=== PATIENT | male | born 1995 ===

== ENCOUNTER 2020-10-29 15:26 | Outpatient (CLI) | payer OTHER ==
--- NOTE | 2020-10-29 16:05 | SLEEP CARE CONSULTATION ---
Information from patient questionnaire entered by Harriett Covington. I have reviewed and concur with the information entered by Harriett Covington. This document represents the service I personally performed and the decisions made by me, Manasa Khanna ARNP. History of Present Illness Service Date and Time: 10/29/2020 1526 Reason for Visit: New patient Chief Complaint: reports: Unrefreshed sleep, Snoring, Excessive daytime sleepiness, Observed pauses in breathing, Fatigue Date of Onset: Middle school 12-13 years Usual bedtime: 9 PM Time it takes to fall asleep: 15-20 Snores at night: Yes Observed to quit breathing while asleep: Yes Sleeps alone due to snoring: Yes Number of times waking at night: 2-3 Reasons for waking at night: reports: Snoring, Gasping for air. denies: Choking Toss, Turn, or Twitch while sleeping: Yes Recalls having dreams: No (mostly not) Usually gets out of bed at: 5:30 AM; weekends 0900 Feels refreshed in the morning: No Morning headache: No Sleepy or fatigued during the day: Yes Ever fallen asleep while driving: Yes (no drowsy driving) Takes day naps: No Dreams during day naps: No Prior sleep studies: Yes Year and Where: 2015 [place], [place] Additional HPI information: I had the pleasure of seeing JARRETT KRISHNAMURTHY today regarding the possibility of him having a sleep disorder. His current complaints are excessive daytime sleepiness, fatigue, observed pauses in breathing, snoring and unrefreshed sleep. He states he has been dealing with these symptoms since he was a teenager. Both of his parents are loud snorers and his father wakes up at night because he cannot breathe. He states he is a loud snorer and keeps his partner up at night. She has told him that he will wake gasping/coughing in his sleep but he does not remember this usually. He talks in sleep sometimes. He used to sleep walk when he was a teenager. He had a sleep study in 2017 and was told he did not have sleep apnea. He continues to have symptoms. He had a sinus surgery to fix a deviated septum because he could not breathe well from his nose. While his snoring improved some after surgery, it has resumed to be as loud as ever. He has history of anxiety and takes Hydroxyzine. 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 Patient is Single and lives in [place]. Have you smoked in the past 12 months: No Cigarettes per day (20/pack): 0 Years of smokin Quit date: 2016 Smoking Pack Years: 0 Alcohol use: No Caffeine use: Yes Caffeine amount and frequency: 1 cup coffee once a day Family History Family history of sleep disordered breathing: Yes Family Hx Sleep Apnea: Mother: Snoring, Sleep apnea - Untreated, Father: Snoring, Sleep apnea - Untreated, Sibling: Snoring, Sleep apnea - Untreated, Grandparent: Snoring, Sleep apnea - Untreated Allergies and Home Medications Drug allergies reviewed: Yes (NKDA) Home medication list reviewed: Yes Allergy and home medication list: Hydroxyzine Review of Systems Weight gain over past 5 years: 30 Cardiovascular: denies: high blood pressure Neurological: denies: headaches Psychiatric: reports: anxiety Ear/Nose/Throat: reports: dry mouth/throat, injury to nose (septoplasty on nose 4 months ago), wisdom teeth removed. denies: tonsillectomy Endocrine: denies: thyroid disease Immunologic: denies: allergies to food or environment Physical Exam Blood Pressure: 116/77 Cuff size: wrist Heart Rate: 88 O2 Saturation: 97 Height: 6 ft Weight: 230 lb Body Mass Index: 31.1 BMI Classification: Obese Neck circumference: 15.75 (inches) Mouth and throat: narrow oropharynx Soft palate: long Hard palate: arched Uvula: normal Uvula visualization: 50% Mallampati Class II Tongue: normal in size Tonsils: 1+ Heart: regular rate and rhythm Lungs: clear bilaterally Impression and Plan 1. Suspected Obstructive Sleep Apnea-Hypopnea Syndrome, as suggested by a history of loud and irregular snoring, observed cessation of breath while asleep, gasping or choking in sleep, unrefreshed sleep, cognitive impairment, and excessive daytime sleepiness. Narrow oropharynx and obesity are common predisposing factors for obstructive sleep apnea-hypopnea syndrome. I recommend proceeding to polysomnography to confirm the diagnosis and to assess severity. If the patient has significant sleep disordered breathing, a manual CPAP titr ation study will also be performed to find the optimal treatment pressure. I informed the patient of what the sleep studies involve and after some discussion, obtained agreement to proceed. The pathophysiology of obstructive sleep apnea-hypopnea syndrome was discussed with the patient and health risks of cardiovascular and cerebrovascular disease if not treated. AAS brochure for obstructive sleep apnea-hypopnea syndrome given and reviewed. Risks of drowsy driving discussed in detail and patient advised to avoid long distance driving and to caul puller at the first sign of drowsiness. Patient agreed to plan. * Schedule polysomnography +- manual CPAP titration study and return in 1-2 weeks after the study to discuss result and initiate therapy. * Avoid long distance driving or driving when feeling sleepy. * Avoid alcohol, sedative and muscle relaxant around bedtime. * Attempt to lose weight. * Review instructions provided by trained office staff on how to prepare for the sleep study. * Return for follow-up after sleep study completed. Counseling Topics: Weight loss health impact Visit Type: In Office Time Spent with Patient (minutes): 30 Provider Statement: I spent 100% of the Face to Face Visit with the patient with greater than 50% spent counseling the patient and coordination of care.
[2020-10-29 16:06] VITALS: BP 116/77
== END 2020-10-29 15:27 | disposition home or self-care (01) ==
LOC: SC 15:26
PROVIDERS: ATTEND Nurse Practitioner Family
DX: G47.10 Hypersomnia, unspecified (principal); R06.83 Snoring; R06.81 Apnea, not elsewhere classified; R41.89 Other symptoms and signs involving cognitive functions and awareness; G47.8 Other sleep disorders; E66.9 Obesity, unspecified; Z68.31 Body mass index [BMI] 31.0-31.9, adult
CPT/HCPCS: 99203; 99212

== ENCOUNTER 2020-11-03 14:14 | Outpatient (CLI) | payer OTHER | END 2020-11-03 14:15 | disposition home or self-care (01) | LOC: SC 14:14 | PROVIDERS: ATTEND Nurse Practitioner Family | DX: G47.33 Obstructive sleep apnea (adult) (pediatric) (principal); R00.0 Tachycardia, unspecified; R09.02 Hypoxemia | CPT/HCPCS: 95806 ==

== ENCOUNTER 2020-11-14 12:59 | Outpatient (CLI) | payer OTHER ==
--- NOTE | 2020-11-14 13:24 | SLEEP CARE CONSULTATION ---
Information from patient questionnaire entered by Harriett Covington. I have reviewed and concur with the information entered by Harriett Covington. This document represents the service I personally performed and the decisions made by , Manasa Khanna ARNP. History of Present Illness Service Date and Time: 11/14/2020 1259 Initial [place] Sleepiness Scale score: 1 (in 2020) Current [place] Sleepiness Scale score: 5 Additional HPI information: JARRETT KRISHNAMURTHY returns for follow up and results of the recently performed home sleep study. I explained the pathophysiology behind obstructive sleep apnea. We then spent quite a bit of time discussing different treatment options. For mild obstructive sleep apnea, surgery and oral appliance are alternatives to nasal CPAP therapy but in moderate or severe cases, nasal CPAP is the most effective and reliable treatment. Because apnea is primarily in supine position, then positional management therapy could be effective. Methods discussed such as positioning with pillows, using a T-shirt with tennis balls in the back, and shown commercial products that have a pillow format on back to prevent supine sleep. I reviewed the impact of weight changes on sleep apnea and strongly recommended losing weight. After some discussion, the patient opted to go with the nasal CPAP therapy. Nasal autoCPAP set at 4-15 cmH20 will be ordered with rationale explained. A manual titration study will be ordered if unable to find optimal pressure with office adjustments. I explained how CPAP machine works with sample devices Respironics Dreamstation and ResSkully Helmets [id number] and what to expect when using the machine. Using CPAP every night in order to get used to it was emphasized. Patient advised to put CPAP mask on before getting into bed so as not to fall asleep without CPAP. To assist acclimation to CPAP use, it could also be used for a short time during day while reading or watching TV. The patient was instructed to call the CPAP supplier to discuss any mechanical problem that may occur. If the mask given is uncomfortable or is difficult to keep on through the night even with adjustment, contact the CPAP supplier as many will replace with another mask style if notified before 30 days. If snoring or perceives is not getting enough air or too much air from the machine, notify this office. [facility] patient education PAP tips reviewed and given to patient. Patient does not drink alcohol. Patient was cautioned about risks of drowsy driving until sleepiness symptoms resolve. Sleep Study - Results Type of Sleep Study: Home sleep study Prior sleep studies: Yes Year and Where: 2015 [place], [place] Polysomnography/Home Sleep Study results: Physician Impression: The quality of the study is good. The length of the study is adequate (> 240 minutes). Please also see the tabulated and graphic data. 1. Obstructive Sleep Apnea-Hypopnea (ICD-10 G47.33), mild, with an AHI of 8.2/hr and moises SaO2 of 80%. During the study, the patient had 35 apneas (35 obstructive, 0 central, 0 mixed) and 25 hypopneas. The longest episode lasted 90.5 seconds. The respiratory events occurred almost exclusively during supine sleep (supine AHI was 11.5 and non-supine, 3.57). 2. Hypoxemia (ICD-10 R09.02), mild, with the lowest oxygen saturation of 80 % and 8.2 minutes with SaO2 under 90%. Baseline oxygen saturation was normal (Average oxygen saturation was 95%). 3. Tachycardia, with maximum recoded heart rate of 251 beats per minute, but mo st likely an artifact. Allergies and Home Medications Home medication list reviewed: Yes (sertraline, hydroxyzine) Review of Systems Review of systems same as previous: Yes (no changes) Physical Exam Heart Rate: 66 O2 Saturation: 90 Height: 6 ft Weight: 243 lb Body Mass Index: 32.9 BMI Classification: Obese Impression and Plan 1. Obstructive Sleep Apnea-Hypopnea Syndrome, mild, with lowest oxygen saturation of 80%. Obviously this is the cause of the patients symptoms of unrefreshed sleep, and excessive daytime sleepiness. Positive pressure therapy could benefit anxiety. Patient states he has tried to sleep only on his side in the past and always finds himself on his back. As mentioned above, the patient will be started on nasal autoCPAP therapy with pressure set at 4-15 cmH2O. A manual titration study will be completed if unable to find optimal treatment pressure with office adjustments. Compliance guidelines also reviewed. A copy of compliance guidelines will be given for reference at check out. Because the apnea is more severe supine, I instructed to avoid sleeping supine using pillow positioning until able to start CPAP use. * Nasal auto CPAP therapy, pressure at 4-15 cm H2O. * Attempt to lose weight. * Avoid alcohol consumption near bedtime. * Avoid supine sleep until using CPAP. * The patient is again cautioned about driving until sleepiness completely resolves. * Return one month after CPAP obtained. I will assess response to therapy and compliance at that time. Counseling Topics: Weight loss health impact Visit Type: In Office Time Spent with Patient (minutes): 20 Provider Statement: I spent 100% of the Face to Face Visit with the patient with greater than 50% spent counseling the patient and coordination of care.
== END 2020-11-14 13:00 | disposition home or self-care (01) ==
LOC: SC 12:59
PROVIDERS: ATTEND Nurse Practitioner Family
DX: G47.33 Obstructive sleep apnea (adult) (pediatric) (principal); R00.0 Tachycardia, unspecified; R09.02 Hypoxemia
CPT/HCPCS: 99212; 99213

== ENCOUNTER 2022-01-28 13:43 | Outpatient (CLI) | payer OTHER | END 2022-01-28 23:59 | disposition EMS.NT | LOC: EMS 13:43 | DX: R11.0 Nausea (principal); R50.9 Fever, unspecified; J02.9 Acute pharyngitis, unspecified; R52 Pain, unspecified ==

== ENCOUNTER 2022-03-27 12:45 | Outpatient (CLI) | payer OTHER ==
--- NOTE | 2022-03-29 08:26 | MRI Report ---
PROCEDURE: KNEE WO - RT INDICATIONS: PAIN IN RIGHT KNEE TECHNIQUE: Noncontrast sagittal PD fast spin echo and T2 fast spin echo with fat saturation, sagittal 3-D gradie nt sequence with fat saturation; coronal T1 spin echo and PD fast spin echo with fat saturation, and axial PD fast spin echo with fat saturation through the knee. COMPARISON: None. FINDINGS: Image quality: Good Menisci Medial: Intact. Meniscocapusular junction maintained. Subtle peripheral surface fraying at the body. Lateral: Intact. Meniscopopliteal fascicles maintained. Cruciate ligaments: Intact Medial structures MCL: Intact Pes anserine tendons: Intact Semimembranosus: Intact Lateral structures LCL: Intact Biceps femoris: Intact IT band: Intact Popliteus tendon: Intact Anterior structures Extensor mechanism: Intact Fat pads: No pathologic edema Medial retinaculum: Intact. Trochlea: Unremarkable morphology. Bone and joint Bones: No fracture, dislocation, or suspicious edema Cartilage: No significant defect Joint space: Physiologic fluid. No measureable loose body. Melo's cyst: None Soft tissues: No significant vascular or other soft tissue pathology. IMPRESSION: No significant internal derangement of the knee. There is only subtle peripheral fraying of the media l meniscal body, without significant tear. Reviewed by: Efrain Gonzalez MD on 03/29/2022 8:24 AM PST Approved by: Efrain Gonzalez MD on 03/29/2022 8:24 AM PST Station ID: [id number]
== END 2022-03-27 12:46 | disposition home or self-care (01) ==
LOC: DI 12:45
PROVIDERS: ATTEND Physician Assistant
DX: M25.561 Pain in right knee (principal)

== ENCOUNTER 2023-08-23 14:08 | Emergency (ER) | payer OTHER ==
[2023-08-23 14:50] LABS: BASOPHILS # (AUTO) 0.1 10^3/uL (0.0-0.1); BASOPHILS % (AUTO) 0.6 %; EOSINOPHILS # (AUTO) 0.5 10^3/uL (0.0-0.7); EOSINOPHILS % (AUTO) 5.8 %; HCT - HEMATOCRIT 42.8 % (42.0-52.0); HGB - HEMOGLOBIN 14.8 g/dL (14.0-18.0); LYMPHOCYTES # (AUTO) 2.9 10^3/uL (1.5-3.5); LYMPHOCYTES % (AUTO) 33.3 %; MEAN CORPUSCULAR HEMOGLOBIN 28.6 pg (27.0-31.0); MEAN CORPUSCULAR HGB CONC 34.6 g/dL (32.0-36.0); MEAN CORPUSCULAR VOLUME 82.6 fL (80.0-94.0); MONOCYTES # (AUTO) 0.7 10^3/uL (0.0-1.0); MONOCYTES % (AUTO) 7.9 %; NEUTROPHILS # (AUTO) 4.6 10^3/uL (1.5-6.6); NEUTROPHILS % (AUTO) 51.9 %; PLT - PLATELET COUNT 266 10^3/uL (130-450); RED BLOOD COUNT 5.18 10^6/uL (4.70-6.10); RED CELL DISTRIBUTION WIDTH 11.9 % (12.0-15.0); WHITE BLOOD COUNT 8.8 x10^3/uL (4.8-10.8)
--- NOTE | 2023-08-23 15:00 | XRAY Report ---
PROCEDURE: Chest 1V INDICATIONS: Chest pain TECHNIQUE: One view of the chest was acquired. COMPARISON: None. FINDINGS: Surgical changes and devices: None. Lungs and pleura: No pleural effusions or pneumothorax. Lungs are clear. Mediastinum: Mediastinal contours appear normal. Heart size is normal. Bones and chest wall: No suspicious bony lesions. Overlying soft tissues appear unremarkable. IMPRESSION: No acute cardiopulmonary process. Reviewed by: Donald Mays MD on 08/23/2023 2:59 PM PDT Approved by: Donald Mays MD on 08/23/2023 2:59 PM PDT Station ID: [id number]
[2023-08-23 15:04] LABS: ALBUMIN 4.5 g/dL (3.2-5.5); ALBUMIN/GLOBULIN RATIO 1.5 (1.0-2.2); ALKALINE PHOSPHATASE 86 IU/L (42-121); ALT ALANINE AMINOTRANSFERASE 32 IU/L (10-60); AST ASPARTATE AMINOTRANSFERASE 18 IU/L (10-42); BILIRUBIN,TOTAL 0.7 mg/dL (0.2-1.0); BUN - BLOOD UREA NITROGEN 19 mg/dL (6-20); CALCIUM 9.6 mg/dL (8.5-10.3); CARBON DIOXIDE - CO2 27 mmol/L (21-32); CHLORIDE 103 mmol/L (101-111); GFR - MDRD 89 (>89); GLUCOSE 90 mg/dL (74-104); LIPASE 11 U/L (11-82); POTASSIUM 3.9 mmol/L (3.5-4.5); SODIUM 135 mmol/L (135-145); TOTAL PROTEIN 7.5 g/dL (6.4-8.9)
[2023-08-23 15:10] LABS: TROPONIN I HIGH SENSITIVITY < 2.3 ng/L (2.3-19.7)
--- NOTE | 2023-08-23 15:14 | ED Physician Documentation ---
PD HPI CHEST PAIN - Stated complaint Stated Complaint: CHEST PX - Chief complaint Chief Complaint: Cardiac - History obtained from History obtained from: Patient - History of Present Illness Timing - onset: How many days ago (severl days of brief sharp pains left chest not associated with eating, position, injury. Hurts with breathing at times but not consistently.) Timing - onset during: Rest Timing - duration: Seconds Timing - details: Still present, Intermittant Quality: Sharp, Pain. No: Pressure, Tightness Location: Left chest, Left shoulder/arm Radiation: Left upper extremity. No: Back Improved by: No: Rest Worsened by: No: Eating Similar symptoms before: Has not had sx before Review of Systems Constitutional: reports: Fatigue (had URI about a month ago and has improved though still some easy fatigue.). denies: Fever, Chills, Myalgias Nose: denies: Rhinorrhea / runny nose, Congestion Throat: denies: Sore throat Cardiac: denies: Palpitations, Pedal edema, Calf pain Respiratory: denies: Dyspnea, Cough PD PAST MEDICAL HISTORY - Past Medical History Past Medical History: Yes Cardiovascular: None Respiratory: Sleep apnea, CPAP use Neuro: None Endocrine/Autoimmune: None GI: None : None HEENT: None Psych: Anxiety Musculoskeletal: None Derm: None - Past Surgical History Past Surgical History: No HEENT: Other - Present Medications Home Medications: Ambulatory Orders Medication Instructions Recorded Confirmed Propranolol HCl 20 mg PO DAILY PRN 08/23/23 08/23/23 buPROPion HCL [Bupropion Xl] 150 mg PO DAILY 08/23/23 08/23/23 buPROPion HCL [Bupropion Xl] 300 mg PO DAILY 08/23/23 08/23/23 - Allergies Allergies/Adverse Reactions: Allergies Allergy/AdvReac Type Severity Reaction Status Date / Time No Known Drug Allergies Allergy Verified 08/23/23 14:16 - Social History Does the pt smoke?: No Smoking Status: Former smoker Does the pt drink ETOH?: No Does the pt have substance abuse?: No - Immunizations Immunizations are current?: Yes PD ED PE NORMAL - Vitals Vital signs reviewed: Yes - General General: Alert and oriented X 3, No acute distress, Well developed/nourished - HEENT HEENT: Atraumatic, Dentition benign - Neck Neck: Supple, no meningeal sign, No adenopathy - Cardiac Cardiac: RRR, No murmur, Other (no chestwall tenderness. ) - Respiratory Respiratory: No respiratory distress - Abdomen Abdomen: Soft, Non tender - Derm Derm: Normal color, Warm and dry, No rash - Extremities Extremities: No edema, No calf tenderness / cord - Neuro Neuro: Alert and oriented X 3, No motor deficit, No sensory deficit Results - Vitals Vitals: Oxygen O2 Source Room air - EKG (time done) 14:25 EKG releavant findings:: EKG personally interpreted by author of this note. Relevant findings are: Rate: Rate (enter#) (78) Rhythm: NSR [place]: Normal Intervals: Normal DE QRS: Normal Ischemia: Normal ST segments. No: ST elevation c/w ischemia, ST depression Compare to prior EKG: Old EKG unavailable - Labs Labs: Laboratory Tests 08/23/23 08/23/23 14:47 14:47 WBC 8.8 RBC 5.18 Hgb 14.8 Hct 42.8 MCV 82.6 MCH 28.6 MCHC 34.6 RDW 11.9 L Plt Count 266 MPV 9.0 Neut # (Auto) 4.6 Lymph # (Auto) 2.9 [place] # (Auto) 0.7 Eos # (Auto) 0.5 Baso # (Auto) 0.1 Absolute Nucleated RBC 0.00 Nucleated RBC % 0.0 Sodium 135 Potassium 3.9 Chloride 103 Carbon Dioxide 27 Anion Gap 5.0 L BUN 19 Creatinine 1.0 Estimated GFR (MDRD) 89 Glucose 90 Calcium 9.6 Total Bilirubin 0.7 AST 18 ALT 32 Alkaline Phosphatase 86 Troponin I High Sens < 2.3 L Total Protein 7.5 Albumin 4.5 Globulin 3.0 Albumin/Globulin Ratio 1.5 Lipase 11 - Rads (name of study) chest xray Relevant Findings:: Prelim report reviewed, EMP independent interpretation of test (no acute process. No CHF. ) PD Medical Decision Making - ED course Complexity details: considered differential (pt had labs and ECG done while in waiting room. No acute process. CXR also done. So pt not on monitor very long. He states had the twang of pain left chest severa times here, and placed on monitor. He states some times of symptoms while on monitor but did not note time. ), d/w patient Reviewed Lab Results: on review of monitored rhythm while here, there are occasional PACs, and a PVC. I don't know if these timed exactly with his symptoms while here. In any event, are benign and there are not worse finding to suggest alternate Dx. Departure - Departure Disposition: 01 Home, Self Care Clinical Impression: Intermittent left-sided chest pain, PAC (premature atrial contraction) Condition: Stable Record reviewed to determine appropriate education?: Yes Instructions: ED Chest Pain Atypical Unkn Cause, ED Palpitations Follow-Up: RONAL ANTONY, [Primary Care Provider] - Comments: Your chest x-ray and EKG and blood tests do not show any acute abnormalities. In particular no signs of heart attack, heart failure, pneumonia, collapsed lung. We did have you on the monitor for short period of time during which you had a few of the brief feelings. We did not time stamp your symptoms per se, so not a strict correlation per se but you did have intermittent extra beats called PACs/PVCs. Typically these do not hurt but does feel little abnormal thump type feeling in the chest. So these may be related to your symptoms or just be incidental as they are somewhat common anyway. Your symptoms again do not seem indicative of anything more serious in the chest. Alternatives would be an inflammatory process, muscular or such. Stay well-hydrated. Minimize caffeine. I would suggest some anti-inflammatory such as ibuprofen or naproxen 2-3 [id number] counter tablets 3 times daily with food for the next 5 to 7 days. See if over the next couple of days the symptoms dissipate. Otherwise recheck with your primary care or return to the ER if generally other symptoms develop such as short of breath or more continuous pain lightheadedness etc. Forms: PCP List Discharge Date/Time: 08/23/23 17:13
[2023-08-23] MEDS: IBUPROFEN 800 MG TABLET PO STA (16:00)
[2023-08-23 16:51] VITALS: BP 160/95; O2SAT 99
== END 2023-08-23 17:13 | disposition home or self-care (01) ==
LOC: ED 14:08
DX: R07.9 Chest pain, unspecified (principal); I49.1 Atrial premature depolarization; Z87.891 Personal history of nicotine dependence
CPT/HCPCS: 36415; 71045; 80053; 83690; 84484; 85025; 93005; 99284; A9270